=== PATIENT | male | born 1950 | race Caucasian/White ===

== ENCOUNTER 2018-06-21 21:19 | Observation (INO) ==
--- NOTE | 2018-06-21 22:43 | ED ---
HPI General Chief complaint: Urogenital-Male Stated complaint: muscle sprain Time Seen by Provider: 06/21/18 22:00 History of Present Illness HPI narrative: 67-year-old male here for evaluation of possible muscle sprain. He was bowling, pulled a muscle on his left thigh, and instantly felt pain, worse when he presses on it or moves, nothing makes it better, pain is rated 7 out of 10, no fall, no trauma, patient is unable to ambulate after the incident or put any weight on his left leg. Related Data Home Medications Medication Instructions Recorded Confirmed amlodipine 10 mg PO DAILY 06/21/18 06/21/18 benazepril 40 mg PO DAILY 06/21/18 06/21/18 hydrochlorothiazide 12.5 mg PO DAILY 06/21/18 06/21/18 levothyroxine 125 mcg PO DAILY 06/21/18 06/21/18 ranitidine HCl 150 mg PO DAILY 06/21/18 06/21/18 sertraline 50 mg PO DAILY 06/21/18 06/21/18 simvastatin 20 mg PO DAILY 06/21/18 06/21/18 Previous Rx's Medication Instructions Recorded cyclobenzaprine 5 mg PO BID #10 tab 06/21/18 Allergies Allergy/AdvReac Type Severity Reaction Status Date / Time No Known Allergies Allergy Unverified 06/21/18 21:40 Review of Systems ROS: all other systems reviewed are negative [facility] Medical History Medical History HTN (hypertension) (Acute) High cholesterol (Acute) Hypothyroid (Acute) Social History Social History Substance History: No History of Abuse Smoking Status: Never smoker How Often Do You Have a Drink Containing Alcohol: Never Recent Travel in [facility] within the Last 8 Weeks: No Recent Out of Country Travel within the Last 8 Weeks: No Immunization History Tetanus Immunization: Unsure Hx Influenza Vaccine This Season: Yes Exam Narrative Exam Narrative: GENERAL: Alert oriented 3 no acute distress. SKIN: Focused skin assessment warm/dry. HEAD: Atraumatic. Normocephalic. EYES: Pupils equal and round. No scleral icterus. No injection or drainage. ENT: No nasal bleeding or discharge. Mucous membranes pink and moist. NECK: Trachea midline. No JVD. CARDIOVASCULAR: Regular rate and rhythm. No murmur appreciated. RESPIRATORY: No accessory muscle use. Clear to auscultation. Breath sounds equal bilaterally. GASTROINTESTINAL: Abdomen soft, non-tender, nondistended. Hepatic and splenic margins not palpable. MUSCULOSKELETAL: No obvious deformities. No clubbing. No cyanosis. No edema. NEUROLOGICAL: Awake and alert. No obvious cranial nerve deficits. Motor grossly within normal limits. Normal speech. PSYCHIATRIC: Appropriate mood and affect; insight and judgment normal. Course Initial Documented Vital Signs Temperature 97.6 F 06/21/18 21:32 Pulse Rate 87 06/21/18 21:32 Respiratory Rate 16 06/21/18 21:32 Blood Pressure 120/65 06/21/18 21:32 Pulse Oximetry 96 06/21/18 21:32 Last Documented Vital Signs Temperature 97.6 F 06/21/18 21:32 Pulse Rate 89 06/22/18 02:13 Respiratory Rate 18 06/22/18 02:13 Blood Pressure 145/72 H 06/22/18 02:13 Pulse Oximetry 95 06/22/18 02:13 Sign Out Sign Out Data: Patient Sign Out occurred on 06/22/18 at 02:34. Patient's care was discussed, and care was transferred from Max Hardy MD to Paris Yousif MD. Sign Out Comment: Lt hip fracture, no systemic symptoms, pending routine pre-op labs/ coags, hospitalist won't accept without labs. call hospitalist and admit after labs. Last updated by Max Hardy MD at 06/22/18 00:50 Post-Handoff Eval: Accepted in transfer of care for follow-up of pending labs and CT results Medical Decision Making MDM Narrative Medical decision making narrative: 67 male here for possible pulled muscle. Incident happened after bowling. X-ray shows femoral head fracture, patient is unable to ambulate. Spoke with Dr. Virk orthopedic call center support consultant, we will do preop labs, CAT scan abdomen, keep patient n.p.o., admit under hospitalist and ortho on consult. update: pending routine preop labs although patient has no systemic symptoms. will sign out pt to Dr. yousif who will call hospitalist with lab results and put the admission orders in. Patient identified to have reported hip fracture on plain film patient's case was reportedly discussed with orthopedist requests for admission labs and CT abdomen and pelvis labs resulted in grossly within normal range CT abdomen pelvis however identifies that there is no obvious pelvic fracture and no hip fracture which is read by radiologist; patient continues to complain of pain in the proximal groin/thigh area patient has reproducible palpable pain in the proximal medial left thigh area patient has decreased range of motion secondary to pain no shortening or external rotation and distally his neurovascular tendon intact plain film of the femur ordered. Discussed with radiologist, per Dr. Jarrell, who states that he is confident there is no hip or pelvic fracture; no benefit to ordering CAT scan of the left hip as he can see the rebel structures well on the imaging study and no femoral or pelvic fracture identified. Patient unable to lift the LLE at the level of the hip unable to perform active hip flexion; discussed with [facility] service for OBS admission for intractable pain and inability to weight bear. Medical Screen Exam Complete: Yes Emergency Medical Condition: Yes Lab Data Lab results reviewed: Yes I reviewed the patient's lab results. Result diagrams: 06/22/18 00:10 06/22/18 00:10 Lab Results 06/22/18 06/22/18 06/22/18 Range/Units 00:10 00:10 00:10 CBC w Diff Auto diff final WBC 11.3 H (4.0-11.0) th/mm3 RBC 4.56 (4.50-5.90) mil/mm3 Hgb 12.3 L (13.0-17.0) gm/dL Hct 36.5 L (39.0-51.0) % MCV 80.0 (80.0-100.0) fL MCH 27.0 (27.0-34.0) pg MCHC 33.8 (32.0-36.0) % RDW 14.0 (11.6-17.2) % Plt Count 257 (150-450) th/mm3 MPV 9.4 (7.0-11.0) fL Neut % (Auto) 88.5 H (16.0-70.0) % Lymph % (Auto) 6.8 L (9.0-44.0) % [place] % (Auto) 4.4 (0.0-8.0) % Eos % (Auto) 0.2 (0.0-4.0) % Baso % (Auto) 0.1 (0.0-2.0) % Neut # (Auto) 10.0 H (1.8-7.7) th/mm3 Lymph # (Auto) 0.8 L (1.0-4.8) th/mm3 [place] # (Auto) 0.5 (0.0-0.9) th/mm3 Eos # (Auto) 0.0 (0.0-0.4) th/mm3 Baso # (Auto) 0.0 (0.0-0.2) th/mm3 WBC Differential . Differential Comment . PT 10.0 (9.8-11.6) sec INR 1.0 Ratio APTT 24.0 L (24.3-30.1) sec Sodium 135 L (136-145) meq/L Potassium 4.0 (3.5-5.1) meq/L Chloride 100 (98-107) meq/L Carbon Dioxide 27.2 (21.0-32.0) meq/L Anion Gap 8 (5-15) meq/L BUN 13 (7-18) mg/dL Creatinine 0.98 (0.60-1.30) mg/dL Estimated GFR 76 L (>89) mL/min Random Glucose 114 H (74-106) mg/dL Calcium 8.5 (8.5-10.1) mg/dL Total Bilirubin 0.4 (0.2-1.0) mg/dL AST 19 (15-37) U/L ALT 20 (12-78) U/L Alkaline Phosphatase 62 (45-117) U/L Total Protein 7.5 (6.4-8.2) g/dL Albumin 3.8 (3.4-5.0) g/dL Urine Color (Yellw/Straw) Urine Clarity (Clear) Urine pH (5.0-8.5) Ur Specific [place] (1.002-1.035) Urine Protein (Neg-Trace) mg/dL Urine Glucose (UA) (Negative) mg/dL Urine Ketones (Negative) mg/dL Urine Occult Blood (Negative) Urine Nitrate (Negative) Urine Bilirubin (Negative) Urine Urobilinogen (Less than 2) mg/dL Ur Leukocyte Esterase (Negative) Urine WBC (0-5) /hpf Ur Squamous Epith Cells (0-5) /hpf Micro UA Comment Ur Microscopic Review Urine Culture Comments Serum Alcohol Less than 3 (0-5) mg/dL 06/22/18 Range/Units 03:30 CBC w Diff WBC (4.0-11.0) th/mm3 RBC (4.50-5.90) mil/mm3 Hgb (13.0-17.0) gm/dL Hct (39.0-51.0) % MCV (80.0-100.0) fL MCH (27.0-34.0) pg MCHC (32.0-36.0) % RDW (11.6-17.2) % Plt Count (150-450) th/mm3 MPV (7.0-11.0) fL Neut % (Auto) (16.0-70.0) % Lymph % (Auto) (9.0-44.0) % [place] % (Auto) (0.0-8.0) % Eos % (Auto) (0.0-4.0) % Baso % (Auto) (0.0-2.0) % Neut # (Auto) (1.8-7.7) th/mm3 Lymph # (Auto) (1.0-4.8) th/mm3 [place] # (Auto) (0.0-0.9) th/mm3 Eos # (Auto) (0.0-0.4) th/mm3 Baso # (Auto) (0.0-0.2) th/mm3 WBC Differential Differential Comment PT (9.8-11.6) sec INR Ratio APTT (24.3-30.1) sec Sodium (136-145) meq/L Potassium (3.5-5.1) meq/L Chloride (98-107) meq/L Carbon Dioxide (21.0-32.0) meq/L Anion Gap (5-15) meq/L BUN (7-18) mg/dL Creatinine (0.60-1.30) mg/dL Estimated GFR (>89) mL/min Random Glucose (74-106) mg/dL Calcium (8.5-10.1) mg/dL Total Bilirubin (0.2-1.0) mg/dL AST (15-37) U/L ALT (12-78) U/L Alkaline Phosphatase (45-117) U/L Total Protein (6.4-8.2) g/dL Albumin (3.4-5.0) g/dL Urine Color Yellow (Yellw/Straw) Urine Clarity Clear (Clear) Urine pH 7.0 (5.0-8.5) Ur Specific [place] 1.010 (1.002-1.035) Urine Protein Negative (Neg-Trace) mg/dL Urine Glucose (UA) Negative (Negative) mg/dL Urine Ketones Trace H (Negative) mg/dL Urine Occult Blood Negative (Negative) Urine Nitrate Negative (Negative) Urine Bilirubin Negative (Negative) Urine Urobilinogen 0.2 (Less than 2) mg/dL Ur Leukocyte Esterase Negative (Negative) Urine WBC 0-5 (0-5) /hpf Ur Squamous Epith Cells 0-5 (0-5) /hpf Micro UA Comment Culture not ind Ur Microscopic Review Microscopic reviewed Urine Culture Comments Culture not ind Serum Alcohol (0-5) mg/dL Imaging Data Radiologist's impression: Hip X-Ray 06/21/18 22:06 CONCLUSION: Left hip impacted subcapital fracture. Abdomen/Pelvis CT 06/21/18 23:41 CONCLUSION: 1. No acute abnormality demonstrated. 2. Scattered hepatic cysts. 3. Cholelithiasis without evidence of cholecystitis or biliary obstruction. 4. Intact osseous structures. Specifically, no pelvic or hip fracture. 5. Small hiatal hernia. 6. Atherosclerotic aorta. Femur X-Ray 06/22/18 02:05 CONCLUSION: The left femur is intact. The apparent subcapital fracture on the comparison left hip x-ray series is not reproducible on the femur films or the CT of the abdomen/pelvis. Discharge Plan Discharge Disposition Patient Disposition: 30 Still Patient Discharge Condition Condition: Stable Discharge Order Discharge Orders: Discharge Order (Routine); Ordered 06/21/18 Ordered By: Max Hardy Discharge Details Diagnosis: Acute myofascial strain, Hip joint painful on movement Physicians Team ED Provider: Paris Yousif Primary Care Provider: UNKNOWN, Attending Provider: Carol Block Discharge Interventions Interventions: Vital Signs Last Done: 06/22/18 02:13 Status ED Status: Admitted Observation Patient
--- NOTE | 2018-06-21 23:06 | XR ---
EXAM DATE: 06/21/2018 10:52 PM EDT AGE/SEX: 67 years / Male INDICATIONS: Patient states while bowling tonight his leg locked up and was unable to walk. Pain in groin region. CLINICAL DATA: This is the patient's initial encounter. Patient reports that signs and symptoms have been present for 1 day and indicates a pain score of 9/10. MEDICAL/SURGICAL HISTORY: None. None. COMPARISON: No prior exams available for comparison. FINDINGS: There is a mildly impacted subcapital fracture of the proximal left femur. No subluxations. The bony pelvis is intact. CONCLUSION: Left hip impacted subcapital fracture. Electronically signed by: Dante Fischer MD 06/21/2018 11:05 PM EDT
[2018-06-22 00:28] LABS: Baso % (Auto) 0.1 % (0.0-2.0); Chloride 100 meq/L (98-107); Eos % (Auto) 0.2 % (0.0-4.0); Hematocrit 36.5 % (39.0-51.0); Hemoglobin 12.3 gm/dL (13.0-17.0); Lymph # (Auto) 0.8 th/mm3 (1.0-4.8); Lymph % (Auto) 6.8 % (9.0-44.0); Mean Corpuscular HGB Conc 33.8 % (32.0-36.0); Mean Platelet Volume 9.4 fL (7.0-11.0); Mono # (Auto) 0.5 th/mm3 (0.0-0.9); Mono % (Auto) 4.4 % (0.0-8.0); Neut % (Auto) 88.5 % (16.0-70.0); Platelet Count 257 th/mm3 (150-450); Red Blood Count 4.56 mil/mm3 (4.50-5.90); Sodium 135 meq/L (136-145); White Blood Count 11.3 th/mm3 (4.0-11.0)
[2018-06-22 00:31] LABS: Calcium 8.5 mg/dL (8.5-10.1)
[2018-06-22 00:32] LABS: Albumin 3.8 g/dL (3.4-5.0); Anion Gap 8 meq/L (5-15); Blood Urea Nitrogen 13 mg/dL (7-18); Carbon Dioxide 27.2 meq/L (21.0-32.0); Glucose,Random 114 mg/dL (74-106)
[2018-06-22 00:35] LABS: Alanine Aminotransferase 20 U/L (12-78); Aspartate Aminotransferase 19 U/L (15-37); Glomerular Filtration Rate 76 mL/min (>89)
[2018-06-22 00:37] LABS: Total Protein 7.5 g/dL (6.4-8.2)
[2018-06-22 00:38] LABS: Alkaline Phosphatase 62 U/L (45-117)
--- NOTE | 2018-06-22 01:29 | CT ---
EXAM DATE: 06/22/2018 1:15 AM EDT AGE/SEX: 67 years / Male INDICATIONS: Muscle sprain. Pelvic fracture. CLINICAL DATA: This is the patient's initial encounter. Patient reports that signs and symptoms have been present for 1 day and indicates a pain score of 5/10. MEDICAL/SURGICAL HISTORY: . High cholesterol. Hypertension. Hypothyroid. . RADIATION DOSE: 19.78 CTDI (mGy) COMPARISON: [facility], HIP LEFT W AP PELVIS 2V, 06/21/2018. . TECHNIQUE: Multiple contiguous axial images were obtained through the abdomen. Images were obtained using multiple row detector helical technique. Using automated exposure control and adjustment of the mA and/or kV according to patient size, radiation dose was kept as low as reasonably achievable to o btain optimal diagnostic quality images. DICOM format image data is available electronically for rev iew and comparison. FINDINGS: There are scattered cysts of the liver measuring up to 2.5 cm in size. Several gallstones are present measuring up to 13 mm. No duct stone or ductal dilatation. No perceptible inflammatory changes. Noncontrast appearance of the spleen, pancreas, adrenal glands and kidneys within normal limits. No obstruction or acute inflammatory changes are seen of the gastrointestinal tract. The appendix is well-visualized, normal. There is no free fluid or free air. Visualized osseous structures are intact. On the comparison x-ray, a subcapital fracture of the left femur with suspected but this turns out to be not the case. There is very mild bilateral hip osteoart hritis. 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 There are also diffuse degenerative changes of the spine. Visualized lung bases are clear. There is a small hiatal hernia. Abdominal aorta is atherosclerotic and tortuous. No aneurysm. CONCLUSION: 1. No acute abnormality demonstrated. 2. Scattered hepatic cysts. 3. Cholelithiasis without evidence of cholecystitis or biliary obstruction. 4. Intact osseous structures. Specifically, no pelvic or hip fracture. 5. Small hiatal hernia. 6. Atherosclerotic aorta. Electronically signed by: Dante Fischer MD 06/22/2018 1:28 AM EDT
[2018-06-22] MEDS ORDERED: Ketorolac Inj 30 MG/ML (IVP) Vial IV.PUSH ONE (02:05)
--- NOTE | 2018-06-22 02:49 | XR ---
EXAM DATE: 06/22/2018 2:44 AM EDT AGE/SEX: 67 years / Male INDICATIONS: Left leg hip and groin pain after leg locked up while bowling yesterday. CLINICAL DATA: This is the patient's subsequent encounter. Patient reports that signs and symptoms h ave been present for 1 day and indicates a pain score of 7/10. MEDICAL/SURGICAL HISTORY: . High cholesterol. Hypertension. Hypothyroid None. COMPARISON: [facility], HIP LEFT W AP PELVIS 2V, 06/21/2018. [facility], CT ABDOMEN & PELVIS W/O CONTRAST, 06/03. . FINDINGS: Bony structures are intact and in normal alignment. Osseous density is normal. Soft tissues are unre markable. No radiopaque foreign bodies seen. CONCLUSION: The left femur is intact. The apparent subcapital fracture on the comparison left hip x-ray series is not reproducible on the femur films or the CT of the abdomen/pelvis. Electronically signed by: Dante Fischer MD 06/22/2018 2:47 AM EDT
[2018-06-22] MEDS ORDERED: Morphine Inj 4 MG/ML Vial IV.PUSH ONE (03:10)
[2018-06-22 03:39] LABS: Bilirubin,Urine Negative (Negative); Clarity,Urine Clear (Clear); Color,Urine Yellow (Yellw/Straw); Glucose,Urine (UA) Negative (Negative); Leukocyte Esterase,Urine Negative (Negative); Nitrite,Urine Negative (Negative); Urobilinogen,Urine 0.2 mg/dL (Less than 2)
[2018-06-22 03:47] LABS: Squamous Epithelial Cell,Urine 0-5 /hpf (0-5); WBC,Urine 0-5 /hpf (0-5)
[2018-06-22] MEDS ORDERED: Bisacodyl 10 MG Supp RECTAL PRN (03:56)
[2018-06-22] MEDS ORDERED: Acetaminophen 325 MG Tablet PO PRN (03:56)
[2018-06-22] MEDS ORDERED: Sodium Chlor 0.9% Inj 500 ML IV.SIG SCH (04:00)
[2018-06-22] MEDS ORDERED: Levothyroxine 125 MCG Tablet PO SCH (06:00)
[2018-06-22] MEDS ORDERED: Heparin - SQ 10,000 UNITS/ML Vial SQ SCH (06:00)
[2018-06-22] MEDS ORDERED: Sertraline 50 MG Tablet PO SCH (09:00)
[2018-06-22] MEDS ORDERED: Lisinopril 20 MG Tablet PO SCH (09:00)
[2018-06-22] MEDS ORDERED: Senna/Docusate Sodium 8.6/50 MG Tablet PO SCH (09:00)
[2018-06-22] MEDS ORDERED: amLODIPine 10 MG Tablet PO SCH (09:00)
[2018-06-22 10:18] VITALS: BP 139/83; PULSE 63; RESP 14; TEMP 98; O2SAT 94
--- NOTE | 2018-06-22 12:21 | P.HP ---
History of Present Illness Primary Care Physician: UNKNOWN Chief Complaint: Fall at home History of Present Illness: This is a 67-year-old male patient with a known medical history of hypertension , hypothyroidism and hyperlipidemia presented to the ED with possible muscle strain. Supposedly patient was bowling last evening, states he immediately felt pain in his left thigh and was worse with ambulation or movement. Patient rated the pain a 7 out of 10 at its worst on pain scale. At the time of assessment today patient states that his pain has significantly improved. Physical therapy has worked with patient, patient is able to ambulate around unit with walker with no problems. He is able to put weight on his leg. The CT of his left thigh does not show any fracture. Patient will be discharged home to follow-up with PCP. Recommendations for NSAIDs and supportive care. Recommended to return to ED if symptoms worsen or persist. She does have a walker at home although requesting a new walker he states that his walker is old and does not work properly. Patient has been prescribed Flexeril from ED physician. Vital signs stable. Afebrile. He is agreeable to plan and stable at this time. - Diagnosis (1) Acute myofascial strain (2) Hip joint painful on movement Review of Systems All other systems reviewed negative except as stated in HPI PMFSH - History History Provided By: Patient - Medical History Medical History: Medical History (Last Reviewed 06/22/18 @ 12:38 by Darya Guidry) Hepatitis C HTN (hypertension) High cholesterol Hypothyroid - Surgical History Surgical History: Surgical History (Last Reviewed 06/22/18 @ 12:38 by Darya Guidry) S/P skin biopsy - Family History Family History: Family History (Last Updated 06/22/18 @ 12:38 by Darya Guidry) Other Family history in first degree relatives is unremarkable - Tobacco History Second Hand Smoke Exposure: No Tobacco Use In Past 30 Days: No Smoking Status: Never smoker - Alcohol History How Often Do You Have a Drink Containing Alcohol: Monthly or less - Substance Use History Substance History: No History of Abuse - Travel History Recent Travel in the [place] Within the Last 8 Weeks: No Recent Travel Out of the Country Within the Last 8 Weeks: No - Immunization History Tetanus Immunization: Unsure Hx Influenza Vaccine This Season: Yes Medications and Allergies Active Medications: Active Medications Acetaminophen (Tylenol) 650 mg PO Q4H PRN PRN Reason: Temp > 100.4 Al Hydroxide/Mg Hydroxide (Milk Of Magnesia Liq) 30 ml PO Q12H PRN PRN Reason: Mild Constipation Amlodipine Besylate (Norvasc) 10 mg PO DAILY [facility] Last Admin: 06/22/18 08:56 Dose: 10 mg Bisacodyl (Dulcolax Supp) 10 mg RECTAL DAILY PRN PRN Reason: SEVERE CONSITIPATION Heparin Sodium (Porcine) (Heparin Inj) 5,000 units SQ Q8HR [facility] Last Admin: 06/22/18 05:43 Dose: 5,000 units Hydrochlorothiazide (Microzide) 12.5 mg PO DAILY [facility] Last Admin: 06/22/18 08:56 Dose: 12.5 mg Sodium Chloride (Ns Inj) 500 mls @ 0 mls/hr IV.SIG BOLUS [facility] Last Infusion: 06/22/18 04:24 Dose: Infused Lactulose (Lactulose Liq) 30 ml PO DAILY PRN PRN Reason: SEVERE CONSITIPATION Levothyroxine Sodium (Synthroid) 125 mcg PO DAILY@0600 [facility] Last Admin: 06/22/18 05:43 Dose: 125 mcg Lisinopril (Prinivil) 40 mg PO DAILY [facility] Last Admin: 06/22/18 08:56 Dose: 40 mg Ondansetron HCl (Zofran Inj) 4 mg IV.PUSH Q6H PRN PRN Reason: NAUSEA OR VOMITING Pravastatin Sodium (Pravachol) 40 mg PO DAILY [facility] Last Admin: 06/22/18 08:56 Dose: 40 mg Senna/Docusate Sodium (Fiorella-Colace) 1 tab PO BID [facility] Last Admin: 06/22/18 08:55 Dose: 1 tab Sennosides (Senokot) 17.2 mg PO Q12H PRN PRN Reason: Moderate Constipation Sertraline HCl (Zoloft) 50 mg PO DAILY [facility] Last Admin: 06/22/18 08:56 Dose: 50 mg Allergies Allergy/AdvReac Type Severity Reaction Status Date / Time No Known Allergies Allergy Unverified 06/21/18 21:40 Home Medications Medication Instructions Recorded Confirmed Type amlodipine 10 mg PO DAILY 06/21/18 06/21/18 History benazepril 40 mg PO DAILY 06/21/18 06/21/18 History hydrochlorothiazide 12.5 mg PO DAILY 06/21/18 06/21/18 History levothyroxine 125 mcg PO DAILY 06/21/18 06/21/18 History ranitidine HCl 150 mg PO DAILY 06/21/18 06/21/18 History sertraline 50 mg PO DAILY 06/21/18 06/21/18 History simvastatin 20 mg PO DAILY 06/21/18 06/21/18 History Exam Vital signs: Vital Signs 06/21/18 21:32 06/22/18 02:13 06/22/18 04:00 Temperature 97.6 F 97.6 F Pulse Rate 87 89 72 Respiratory Rate 16 18 18 Blood Pressure 120/65 145/72 H 121/65 Pulse Oximetry 96 95 94 L 06/22/18 05:05 06/22/18 08:00 Temperature 98.0 F Pulse Rate 83 63 Respiratory Rate 16 14 Blood Pressure 134/75 139/83 Pulse Oximetry 95 94 L Intake & Output 06/21/18 06/22/18 06/22/18 18:59 06:59 18:59 Intake Total 500 / 500 Output Total 0 / 0 Balance 500 / 500 Weight 87.6 kg Intake: IV 500 / 500 NS Inj 500 ML @ Wide Open IV. 500 / 500 SIG BOLUS MARIAN Rx#:[id number] Output: Urine 0 / 0 Other: Date of Last Bowel Movement 06/21/18 Weight On Admission 87.4 kg Narrative: GENERAL: Well-developed, well-nourished patient in [facility]. SKIN: Warm and dry. No rash. HEAD: Normocephalic. Atraumatic. EYES: Pupils equal and round. No scleral icterus. No injection or drainage. ENT: No nasal bleeding or discharge. Mucous membranes pink and moist. NECK: Supple. Trachea midline. CARDIOVASCULAR: Regular rate and rhythm. S1, S2 noted. No murmur appreciated. RESPIRATORY: No accessory muscle use. Clear to auscultation. Breath sounds equal bilaterally. GASTROINTESTINAL: Abdomen soft, non-tender, nondistended. Normoactive bowel sounds x4. MUSCULOSKELETAL: No obvious deformities. Extremities without clubbing, cyanosis , or edema. NEUROLOGICAL: Awake and alert. No obvious cranial nerve deficits. Motor grossly within normal limits. 5/5 muscle strength in bilateral upper and lower extremities. Normal speech. PSYCHIATRIC: Appropriate mood and affect; insight and judgment normal. Results - Labs CBC & Chem 7: 06/22/18 00:10 06/22/18 00:10 Labs: Laboratory Results - last 24 hr 06/22/18 06/22/18 06/22/18 00:10 00:10 00:10 CBC w Diff Auto diff final WBC 11.3 H RBC 4.56 Hgb 12.3 L Hct 36.5 L MCV 80.0 MCH 27.0 MCHC 33.8 RDW 14.0 Plt Count 257 MPV 9.4 Neut % (Auto) 88.5 H Lymph % (Auto) 6.8 L [place] % (Auto) 4.4 Eos % (Auto) 0.2 Baso % (Auto) 0.1 Neut # (Auto) 10.0 H Lymph # (Auto) 0.8 L [place] # (Auto) 0.5 Eos # (Auto) 0.0 Baso # (Auto) 0.0 WBC Differential . Differential Comment . PT 10.0 INR 1.0 APTT 24.0 L Sodium 135 L Potassium 4.0 Chloride 100 Carbon Dioxide 27.2 Anion Gap 8 BUN 13 Creatinine 0.98 Estimated GFR 76 L Random Glucose 114 H Calcium 8.5 Total Bilirubin 0.4 AST 19 ALT 20 Alkaline Phosphatase 62 Total Protein 7.5 Albumin 3.8 Urine Color Urine Clarity Urine pH Ur Specific Driver Urine Protein Urine Glucose (UA) Urine Ketones Urine Occult Blood Urine Nitrate Urine Bilirubin Urine Urobilinogen Ur Leukocyte Esterase Urine WBC Ur Squamous Epith Cells Micro UA Comment Ur Microscopic Review Urine Culture Comments Serum Alcohol Less than 3 06/22/18 03:30 CBC w Diff WBC RBC Hgb Hct MCV MCH MCHC RDW Plt Count MPV Neut % (Auto) Lymph % (Auto) [place] % (Auto) Eos % (Auto) Baso % (Auto) Neut # (Auto) Lymph # (Auto) [place] # (Auto) Eos # (Auto) Baso # (Auto) WBC Differential Differential Comment PT INR APTT Sodium Potassium Chloride Carbon Dioxide Anion Gap BUN Creatinine Estimated GFR Random Glucose Calcium Total Bilirubin AST ALT Alkaline Phosphatase Total Protein Albumin Urine Color Yellow Urine Clarity Clear Urine pH 7.0 Ur Specific Driver 1.010 Urine Protein Negative Urine Glucose (UA) Negative Urine Ketones Trace H Urine Occult Blood Negative Urine Nitrate Negative Urine Bilirubin Negative Urine Urobilinogen 0.2 Ur Leukocyte Esterase Negative Urine WBC 0-5 Ur Squamous Epith Cells 0-5 Micro UA Comment Culture not ind Ur Microscopic Review Microscopic reviewed Urine Culture Comments Culture not ind Serum Alcohol - Imaging Impressions Hip X-Ray 06/21/18 22:06 CONCLUSION: Left hip impacted subcapital fracture. Abdomen/Pelvis CT 06/21/18 23:41 CONCLUSION: 1. No acute abnormality demonstrated. 2. Scattered hepatic cysts. 3. Cholelithiasis without evidence of cholecystitis or biliary obstruction. 4. Intact osseous structures. Specifically, no pelvic or hip fracture. 5. Small hiatal hernia. 6. Atherosclerotic aorta. Femur X-Ray 06/22/18 02:05 CONCLUSION: The left femur is intact. The apparent subcapital fracture on the comparison left hip x-ray series is not reproducible on the femur films or the CT of the abdomen/pelvis. Caprini VTE Risk Assessment Caprini VTE Risk Assessment: Moderate/High Risk (score >= 2) Caprini Risk Assessment Model: Point Value = 1 Point Value = 2 Point Value = 3 Point Value = 5 Age 41-60 Minor surgery BMI > 25 kg/m2 Swollen legs Varicose veins or History of unexplained or recurrent spontaneous Oral contraceptives or hormone replacement Sepsis (< 1 month) Serious lung disease, including pneumonia (< 1 month) Abnormal pulmonary function Acute myocardial infarction Congestive heart failure (< 1 month) History of inflammatory bowel disease Medical patient at bed rest Age 61-74 Arthroscopic surgery Major open surgery (> 45 min) Laparoscopic surgery (> 45 min) Malignancy Confined to bed (> 72 hours) Immobilizing plaster cast Central venous access Age >= 75 History of VTE Family history of VTE Factor V Leiden Prothrombin [id number] Lupus anticoagulant Anticardiolipin antibodies Elevated serum homocysteine Heparin-induced thrombocytopenia Other congenital or acquired thrombophilia Stroke (< 1 month) Elective arthroplasty Hip, pelvis, or leg fracture Acute spinal cord injury (< 1 month) Prophylaxis Regimen: Total Risk Factor Score Risk Level Prophylaxis Regimen 0-1 Low Early ambulation 2 Moderate Order ONE of the following: *Sequential Compression Device (SCD) *Heparin 5000 units SQ BID 3-4 Higher Order ONE of the following medications: *Heparin 5000 units SQ TID *Enoxaparin/Lovenox 40 mg SQ daily (WT < 150 kg, CrCl > 30 mL/min) *Enoxaparin/Lovenox 30 mg SQ daily (WT < 150 kg, CrCl > 10-29 mL/min) *Enoxaparin/Lovenox 30 mg SQ BID (WT < 150 kg, CrCl > 30 mL/min) AND/OR *Sequential Compression Device (SCD) 5 or more Highest Order ONE of the following medications: *Heparin 5000 units SQ TID (Preferred with Epidurals) *Enoxaparin/Lovenox 40 mg SQ daily (WT < 150 kg, CrCl > 30 mL/min) *Enoxaparin/Lovenox 30 mg SQ daily (WT < 150 kg, CrCl > 10-29 mL/min) *Enoxaparin/Lovenox 30 mg SQ BID (WT < 150 kg, CrCl > 30 mL/min) AND *Sequential Compression Device (SCD) Assessment and Plan - Assessment (1) Acute myofascial strain Status: Acute (2) Hip joint painful on movement Code(s): M25.559 - Pain in unspecified hip Status: Acute - Plan This is a 67-year-old patient with Muscle strain -Initially the hip x-ray did show some possible fracture. -An abdominal/pelvis CT as well as a left hip CT has been done and reviewed showing no presence of fracture. -Patient worked with physical therapy today, was able to ambulate the unit with walker without any pain. He is able to put weight on his leg today. He states that his pain is improved. A Flexeril prescription has been prescribed by ED physician last evening. -Will advise NSAIDs if needed as well as supportive care and elevation when resting. -Patient will follow-up PCP upon discharge. He denies any chest pain, headache , shortness of breath, dumping, nausea, vomiting, diarrhea or dysuria. He is agreeable to plan stable at this time. -Patient is advised to return to ED if symptoms worsen or persist. Discharge home and stable. Follow-up PCP. Activity as tolerated. Use walker at home. Heart healthy diet.
== END 2018-06-22 13:33 | disposition home or self-care (01) ==
LOC: PHEFT 21:19 → PHEDA 21:19 → PH3 06-22 05:08
PROVIDERS: ADMIT Internal Medicine; ATTEND Internal Medicine
DX: E78.5 Hyperlipidemia, unspecified; I70.0 Atherosclerosis of aorta; E03.9 Hypothyroidism, unspecified; K44.9 Diaphragmatic hernia without obstruction or gangrene; I10 Essential (primary) hypertension; W19.XXXA Unspecified fall, initial encounter; Y92.39 Other specified sports and athletic area as the place of occurrence of the external cause; Y93.54 Activity, bowling; S76.012A Strain of muscle, fascia and tendon of left hip, initial encounter; K80.20 Calculus of gallbladder without cholecystitis without obstruction; E78.00 Pure hypercholesterolemia, unspecified